=== PATIENT | female | born 2000 | race African-American/Black ===

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

== ENCOUNTER 2021-06-09 19:39 | Emergency (ER) | payer OTHER ==
[~2021-06-09] VITALS: Ht 177.8 cm; Wt 93.2 kg
[2021-06-09 22:00] VITALS: BP 127/85
== END 2021-06-09 22:12 | disposition home or self-care (01) ==
LOC: EMS 19:39
DX: S51.831A Puncture wound without foreign body of right forearm, initial encounter (principal); W55.01XA Bitten by cat, initial encounter; Y93.89 Activity, other specified; Y92.89 Other specified places as the place of occurrence of the external cause; Y99.8 Other external cause status
CPT/HCPCS: 99283; Z7502